=== PATIENT | female | born 1965 | race Hispanic/Latino ===

== ENCOUNTER 2017-10-13 06:09 | Day surgery (SDC) | payer OTHER ==
[~2017-10-13] VITALS: Ht 152.4 cm; Wt 75.3 kg
[~2017-10-13 06:09] MED LIST: AMLO5TAB2 PO; ERGO500014 PO; FERS325 PO; GLIP5TAB11 PO; LISI-613 PO; LOVA10TA2 PO; METF10004 PO
[2017-10-13 06:37] VITALS: BP 138/86
[2017-10-13] MEDS ORDERED: SODIUM CHLORIDE 0.9% 1000ML 1,000 ML IV ONE (06:54)
[2017-10-13] MEDS ORDERED: PROPOFOL 10 MG/ML 20ML VIAL IV ONE (07:51)
== END 2017-10-13 08:33 | disposition home or self-care (01) ==
LOC: DAH 06:09
PROVIDERS: ATTEND Internal Medicine Gastroenterology
DX: D50.0 Iron deficiency anemia secondary to blood loss (chronic) (principal); I10 Essential (primary) hypertension; E11.9 Type 2 diabetes mellitus without complications; E78.5 Hyperlipidemia, unspecified; Z83.3 Family history of diabetes mellitus
CPT/HCPCS: 36415; 45378; 82948 ×2; 84703; A4606; J2704; J7030; G9654